=== PATIENT | female | born 1970 | race African-American/Black ===

== ENCOUNTER 2016-08-24 22:50 | Emergency (ER) | payer MEDICAID ==
[~2016-08-24] VITALS: Ht 162.6 cm; Wt 86.2 kg
[~2016-08-24 22:50] MED LIST: HYDR12.56; NOR7.5T
[2016-08-24 23:00] VITALS: BP 153/86
[2016-08-24] MEDS ORDERED: TETRACAINE HCL 0.5% OPTH(EYE) SOLN 4ML ONE (23:23)
[2016-08-24] MEDS ORDERED: TETRACAINE HCL 0.5% OPTH(EYE) SOLN 4ML RIGHTEYE ONE (23:45)
[2016-08-25] MEDS ORDERED: SULFACETAMIDE SOD 10% OPTH(EYE) SOL 15ML ONE (01:00)
[2016-08-25] MEDS ORDERED: SULFACETAMIDE SOD 10% OPTH(EYE) SOL 15ML RIGHTEYE ONE ×2 (01:30→01:45)
== END 2016-08-25 01:44 | disposition home or self-care (01) ==
LOC: EDBD 22:50 → ER 22:56
DX: H16.001 Unspecified corneal ulcer, right eye (principal); F17.210 Nicotine dependence, cigarettes, uncomplicated; Z79.899 Other long term (current) drug therapy; Z76.0 Encounter for issue of repeat prescription